=== PATIENT | male | born 1955 | race Caucasian/White ===

== ENCOUNTER → 2018-11-23 10:13 | Outpatient (CLI) | payer OTHER, SELFPAY ==
[2018-11-23 11:26] LABS: Albumin 4.5 g/dL (3.5-5.0)
[2018-11-23 11:57] LABS: Prostate Specific Antigen 0.557 ng/mL (0.10-4.00)
[2018-11-24 16:11] LABS: Sex Hormone Binding Globulin 35 nmol/L (22-77)
[2018-11-25 10:15] LABS: Testosterone, Free 0.65 ng/dL
== END ==
PROVIDERS: PCP Specialist; Visit Provider Specialist
DX: F52.21 Male erectile disorder (principal); N40.1 Benign prostatic hyperplasia with lower urinary tract symptoms
CPT/HCPCS: 36415; 82040; 84153; 84270; 84402

== ENCOUNTER → 2018-12-10 11:08 | Outpatient (CLI) | payer OTHER, SELFPAY ==
--- NOTE | 2018-12-10 | DI.RAD.S_ITS ---
PROCEDURE: XR KUB INDICATIONS: KIDNEY STONE TECHNIQUE: One view of the abdomen acquired. COMPARISON: None. FINDINGS: Surgical changes and devices: None. Bowel: Bowel gas pattern is normal. Soft tissues: There are bilateral pelvic sidewall suspicious pelvic calcifications, ranging in size from 1.5 mm to 2.5 mm, 4 on the right and one on the left in the expected region of the distal ureters bilaterally. Visualized solid organ contours appear normal in size. Bones: No suspicious bony lesions. IMPRESSION: A calculus over the expected area of the kidneys is not found. The calcifications discussed above along the pelvic sidewalls greater on the right than the left could represent phleboliths or distal ureteral stones. A comparison plain film or CT scan through this area is not seen. Dictated by: Flaco Barragan M.D. on 12/10/2018 at 12:36 Approved by: Flaco Barragan M.D. on 12/10/2018 at 12:39
== END ==
PROVIDERS: Visit Provider Specialist
DX: N20.0 Calculus of kidney (principal)
CPT/HCPCS: 74018